=== PATIENT | female | born 1950 | race Hispanic/Latino ===

== ENCOUNTER 2021-07-31 08:05 | Emergency (ER) | payer MEDICARE ==
[~2021-07-31] VITALS: Ht 152.4 cm; Wt 68.9 kg
[2021-07-31] MEDS ORDERED: TETANUS/DIPHTHERIA TOX ADULT 0.5 ML SYR IM ONE (08:30)
[2021-07-31] MEDS ORDERED: LIDOCAINE HCL 1% LOCAL INJ 20 ML VIAL ONE (08:31)
[2021-07-31] MEDS ORDERED: TETANUS/DIPHTHERIA TOX ADULT 0.5 ML SYR ONE (08:31)
== END 2021-07-31 09:13 | disposition home or self-care (01) ==
LOC: FSED 08:25
DX: S61.512A Laceration without foreign body of left wrist, initial encounter (principal); W25.XXXA Contact with sharp glass, initial encounter; Y92.008 Other place in unspecified non-institutional (private) residence as the place of occurrence of the external cause; I10 Essential (primary) hypertension; E27.40 Unspecified adrenocortical insufficiency
CPT/HCPCS: 12001; 90471; 90714; 99283; J2001

== ENCOUNTER 2023-12-08 05:51 | Emergency (ER) | payer MEDICARE ==
[~2023-12-08] VITALS: Ht 152.4 cm; Wt 68.9 kg
[2023-12-08 06:09] VITALS: O2SAT 100
[2023-12-08] MEDS ORDERED: KETOROLAC TROMETHAMINE 30 MG/ML VIAL IM STA (06:17)
[2023-12-08 06:24] LABS: CLARITY,URINE CLOUDY (CLEAR); COLOR,URINE YELLOW (YELLOW); LEUKOCYTE ESTERASE ,URINE SMALL (NEGATIVE); NITRITE,URINE NEGATIVE (NEGATIVE); PH,URINE 7 (5 - 7); PROTEIN,URINE DIPSTICK 2+ (NEGATIVE)
[2023-12-08 06:25] LABS: BILIRUBIN,URINE NEGATIVE (NEGATIVE); GLUCOSE, URINE NEGATIVE (NEGATIVE); KETONES,URINE NEGATIVE (NEGATIVE); URINE UROBILINOGEN 0.2 mg/dL (0.2 - 1)
[2023-12-08] MEDS ORDERED: ACETAMINOPHEN 325 MG TAB PO ONE (06:30)
[2023-12-08 06:33] LABS: BACTERIA,URINE FEW /HPF; EPITHELIAL CELLS,URINE RARE /LPF; RBC,URINE >50 /HPF (0-5)
[2023-12-08] MEDS ORDERED: AZO URINARY P99.5 MG PO (06:36)
[2023-12-08] MEDS ORDERED: CEFDINIR300 MG PO (06:36)
== END 2023-12-08 07:08 | disposition home or self-care (01) ==
LOC: ER 05:55
DX: R50.9 Fever, unspecified (principal); N39.0 Urinary tract infection, site not specified; R30.0 Dysuria; I10 Essential (primary) hypertension; E78.5 Hyperlipidemia, unspecified; E03.9 Hypothyroidism, unspecified; M19.09 Primary osteoarthritis, other specified site
CPT/HCPCS: 81001; 87086; 99283; J1885

== ENCOUNTER 2024-07-22 08:21 | Emergency (ER) | payer MEDICARE ==
[~2024-07-22] VITALS: Ht 152.4 cm; Wt 70.3 kg
[~2024-07-22 08:21] MED LIST: AZO URINARY P99.5 MG PO; CEFDINIR300 MG PO
[2024-07-22 08:28] VITALS: TEMP 98.6
[2024-07-22 09:45] VITALS: BP 212/93
[2024-07-22] MEDS: CLONIDINE HCL 0.2 MG TAB PO ONE (09:45)
[2024-07-22 10:39] VITALS: PULSE 67; RESP 16; O2SAT 98
== END 2024-07-22 10:45 | disposition home or self-care (01) ==
LOC: FSED 08:26
DX: I10 Essential (primary) hypertension (principal); E27.40 Unspecified adrenocortical insufficiency; E03.9 Hypothyroidism, unspecified; E78.5 Hyperlipidemia, unspecified; M19.90 Unspecified osteoarthritis, unspecified site
CPT/HCPCS: 93005; 99283

== ENCOUNTER 2025-02-05 00:26 | Emergency (ER) | payer MEDICARE ==
[~2025-02-05] VITALS: Ht 152.4 cm; Wt 70.3 kg
[2025-02-05 00:30] VITALS: TEMP 97.7
[2025-02-05 01:34] VITALS: PULSE 77; RESP 16; O2SAT 97
== END 2025-02-05 01:40 | disposition home or self-care (01) ==
LOC: ER 00:28
DX: R51.9 Headache, unspecified (principal); I10 Essential (primary) hypertension; E78.5 Hyperlipidemia, unspecified; E03.9 Hypothyroidism, unspecified; M19.09 Primary osteoarthritis, other specified site
CPT/HCPCS: 99283

== ENCOUNTER 2025-03-10 20:27 | Emergency (ER) | payer MEDICARE ==
[~2025-03-10] VITALS: Ht 149.9 cm; Wt 69.4 kg
[2025-03-10 21:51] VITALS: PULSE 87; RESP 18; TEMP 97.8
[2025-03-10 21:52] VITALS: BP 164/82; PULSE 87; RESP 18; TEMP 97.8; O2SAT 97
== END 2025-03-10 21:59 | disposition home or self-care (01) ==
LOC: FSED 20:38
DX: I10 Essential (primary) hypertension (principal); F41.9 Anxiety disorder, unspecified; E78.5 Hyperlipidemia, unspecified; E03.9 Hypothyroidism, unspecified; M19.09 Primary osteoarthritis, other specified site; E55.9 Vitamin D deficiency, unspecified; R94.31 Abnormal electrocardiogram [ECG] [EKG]
CPT/HCPCS: 80053; 81003; 85025; 93005; 99284